=== PATIENT | male | born 1990 | race Caucasian/White ===

== ENCOUNTER 2017-08-18 22:50 | Emergency (ER) | END 2017-08-19 00:06 | disposition home or self-care (01) ==

== ENCOUNTER 2017-09-04 14:36 | Emergency (ER) | END 2017-09-04 17:05 | disposition home or self-care (01) ==

== ENCOUNTER 2017-09-12 22:41 | Emergency (ER) | END 2017-09-13 01:59 | disposition home or self-care (01) ==

== ENCOUNTER 2017-10-29 19:16 | Emergency (ER) | END 2017-10-29 20:11 | disposition left against medical advice (07) ==

== ENCOUNTER → 2017-10-29 | Emergency (ER) | END | disposition home or self-care (01) ==

== ENCOUNTER 2018-10-28 21:33 | Emergency (ER) | payer BC ==
[~2018-10-28] VITALS: Ht 160 cm; Wt 82.2 kg
[~2018-10-28 21:33] MED LIST: BEN25 PO; CETI10CA PO; DIPH25CA6 PO; ELIM TOP; EPIN0.3P4 INJ; FEXO180T61 PO; HYDR-842 PO; HYDR50TA15 PO; LORA10CA PO; PRED20TA PO
[2018-10-28 21:49] VITALS: Ht 160 cm; Wt 82.2 kg
--- NOTE | 2018-10-28 22:38 | ERD ---
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 The patient was eating shrimp and drinking a beer when this happened. He denies palpitations, no sweating, no shortness of breath, no radiation of the pain. The patient is a non-smoker, no history of hypertension, no history of family heart disease. Currently, the patient is asymptomatic, pain is 0/10 ROS All systems reviewed and are negative except as per history of present illness. Medications Home Meds Active Scripts Hydroxyzine Hcl* (Atarax*) 25 Mg Tab, 25 MG PO Q6H PRN for ITCHING, #30 TAB Prov:CORTEZ MCGRATH PA-C 10/29/17 Permethrin* (Elimite*) 5% Cr, 1 APPLIC TOP ONCE, #2 TUB Prov:CORTEZ MCGRATH PA-C 10/29/17 Loratadine* (Claritin*) 10 Mg Capsule, 10 MG PO DAILY, #30 CAP Prov:PASILABAN,JANISAR F 09/13/17 Prednisone* (Prednisone*) 20 Mg Tab, 20 MG PO DAILY for 4 Days, TAB Prov:PASILABAN,JANISAR F 09/13/17 Hydroxyzine Hcl* (Hydroxyzine Hcl*) 50 Mg Tablet, 50 MG PO Q6H PRN for ITCHING, #30 TAB Prov:PASILABAN,JANISAR F 09/13/17 Epinephrine (Epipen 2-Jesus) 0.3 Mg/0.3 Ml Pen.injctr, 1 EA INJ ONCE PRN for ALLERGIC REACTION, #1 EA Prov:PASILABAN,JANISAR F 09/13/17 Diphenhydramine Hcl* (Diphenhydramine Hcl*) 25 Mg Capsule, 25 MG PO Q6 PRN for ITCHING for 3 Days, CAP Prov:DENEENDIANN PALACIOS 09/04/17 Fexofenadine Hcl* (Carola*) 180 Mg Tablet, 180 MG PO DAILY, #30 TAB Prov:DENEENDIANN PALACIOS C 09/04/17 Prednisone* (Prednisone*) 20 Mg Tab, 40 MG PO DAILY for 4 Days, TAB Prov:FRANCESCA CARLTON PA-C 08/18/17 Diphenhydramine Hcl* (Benadryl*) 25 Mg Cap, 25 MG PO Q6, #30 CAP Prov:FRANCESCA CARLTON PA-C 08/18/17 Cetirizine Hcl* (Zyrtec*) 10 Mg Capsule, 10 MG PO DAILY, #10 TAB.CHEW Prov:FRANCESCA CARLTON PA-C 08/18/17 Allergies Allergies: Coded Allergies: No Known Allergy (Unverified , 10/29/17) PMhx/Soc History of Surgery: Yes (CLEFT PALLET REPAIR) Anesthesia Reaction: No Hx Neurological Disorder: No Hx Respiratory Disorders: No Hx Cardiac Disorders: No Hx Psychiatric Problems: No Hx Miscellaneous Medical Probl: No Hx Alcohol Use: Yes (social) Hx Substance Use: Yes (MARIJUANA) Hx Tobacco Use: No Smoking Status: Never smoker FmHx Family History: No diabetes, No coronary disease Physical Exam Vitals Vital Signs Date Temp Pulse Resp B/P (MAP) Pulse Ox O2 O2 Flow FiO2 Time Delivery Rate 10/28/18 98.9 71 16 135/73 100 21:49 (93) Physical Exam Const: No acute distress Head: Atraumatic Eyes: Normal Conjunctiva ENT: Normal External Ears, Nose and Mouth. Neck: Full range of motion. No meningismus. Resp: Clear to auscultation bilaterally Cardio: Regular rate and rhythm, no murmurs Abd: Soft, non tender, non distended. Normal bowel sounds Skin: No petechiae or rashes Back: No midline or flank tenderness Ext: No cyanosis, or edema Neur: Awake and alert Psych: Normal Mood and Affect Procedures/MDM Vital signs stable. Differential diagnosis include but not limited to: URI, PNA, chostochondritis, GERD, musculoskeletal injury, less likely PE, pericarditis, endocarditis. Pertinent Data: 12 Lead ECG: Sinus rhythm, no ST changes, T wave with nonspecific abnormality in leads III, aVF and V3, normal intervals Physical examination and clinical presentation consistent most likely with atypical chest pain, I recommended a set of troponin due to the nonspecific T wave abnormalities, however, the patient states that he feels much better and he wants to go home, therefore, he refuses the troponin. During the ED course the patient remained stable, no new complaints. Results and clinical impression discussed with patient who agrees with management. The patient is stable to be treated outpatient and will be discharged home. The patient was informed that the evaluation in the emergency department has been done to rule out an acute emergency, therefore, chronic conditions like malignancy or other non-urgent medical condition have not been evaluated; the refore, the patient was instructed to follow up with the primary care provider in the next 48h. If symptoms persist, worsen or new symptoms develop, then patient should return to the ED immediately. Instructions explained and given directly by me to the patient with acknowledgment and demonstrated understanding. Disclaimer: Inadvertent spelling and grammatical errors are likely due to EHR/dictation software use and do not reflect on the overall quality of patient care. Also, please note that the electronic time recorded on this note does not necessarily reflect the actual time of the patient encounter. Departure Diagnosis: Primary Impression: Chest wall pain Condition: Stable Additional Instructions: Thank you very much for allowing us to participate in your care. Your health and safety is our top priority at [facility]. Call your primary care doctor TOMORROW for an appointment during the next 2-4 days and bring all the information and medications prescribed. Have prescriptions filled and follow precisely the directions on the label. If the symptoms get worse and your provider is unavailable, return to the Emergency Department immediately. EAN SHAW MD Oct 28, 2018 22:38
[2018-10-28] MEDS ORDERED: IBUP-1561 PO (22:39)
[2018-10-28 23:45] VITALS: BP 135/73; PULSE 80; RESP 16
== END 2018-10-28 23:46 | disposition home or self-care (01) ==
LOC: FTE 21:33
DX: R07.89 Other chest pain (principal)

== ENCOUNTER 2018-12-09 03:12 | Emergency (ER) | payer BC ==
[~2018-12-09] VITALS: Wt 82.3 kg
[~2018-12-09 03:12] MED LIST changes: +IBUP-1561 PO
[2018-12-09 03:17] VITALS: BP 125/78; PULSE 54; RESP 18
[2018-12-09] MEDS ORDERED: DIPHENHYDRAMINE 25 MG CAP PO STA (03:55)
[2018-12-09] MEDS ORDERED: predniSONE 20 MG TAB PO STA (03:55)
[2018-12-09] MEDS ORDERED: EPIN0.3P4 INJ (04:24)
[2018-12-09] MEDS ORDERED: BEN25 PO (04:24)
[2018-12-09] MEDS ORDERED: PRED20TA PO (04:24)
--- NOTE | 2018-12-09 04:31 | ERD ---
ER Documentation Chief Complaint Chief Complaint ALLERGIC REACTION HPI This is a 28-year-old male with no history of allergies presents to the ED with intermittent hives x4 days. Patient states he started using a new shampoo and believes this may be the cause. He states rash is very itchy. He tried taking Benadryl with temporary relief of his pain. Denies any shortness of breath, tongue swelling, difficulty swallowing, breathing or any other complaints. No other new exposures reported. ROS All systems reviewed and are negative except as per history of present illness. Medications Home Meds Active Scripts Epinephrine (Epipen 2-Jesus) 0.3 Mg/0.3 Ml Pen.injctr, 1 EA INJ ONCE PRN for ALLERGIC REACTION, #1 EA Prov:KIMBERLEY VERDUZCO PA-C 12/09/18 Prednisone* (Prednisone*) 20 Mg Tab, 60 MG PO DAILY for 4 Days, TAB Prov:RUKHSANAIGRKIMBERLEY ROSS PA-C 12/09/18 Diphenhydramine Hcl* (Benadryl*) 25 Mg Cap, 25 MG PO Q6 PRN for ITCHING/RASH, #30 TAB Prov:KIMBERLEY VERDUZCO PA-C 12/09/18 Ibuprofen* (Motrin*) 400 Mg Tab, 400 MG PO Q6H PRN for PAIN AND OR ELEVATED TEMP, #20 TAB Prov:EAN SHAW MD 10/28/18 Hydroxyzine Hcl* (Atarax*) 25 Mg Tab, 25 MG PO Q6H PRN for ITCHING, #30 TAB Prov:CORTEZ MCGRATH PA-C 10/29/17 Permethrin* (Elimite*) 5% Cr, 1 APPLIC TOP ONCE, #2 TUB Prov:CORTEZ MCGRATH PA-C 10/29/17 Loratadine* (Claritin*) 10 Mg Capsule, 10 MG PO DAILY, #30 CAP Prov:PASILARENETTA VÁZQUEZ 09/13/17 Prednisone* (Prednisone*) 20 Mg Tab, 20 MG PO DAILY for 4 Days, TAB Prov:PASRENETTA GALVAN 09/13/17 Hydroxyzine Hcl* (Hydroxyzine Hcl*) 50 Mg Tablet, 50 MG PO Q6H PRN for ITCHING, #30 TAB Prov:PASILARENETTA VÁZQUEZ 09/13/17 Epinephrine (Epipen 2-Jesus) 0.3 Mg/0.3 Ml Pen.injctr, 1 EA INJ ONCE PRN for ALLERGIC REACTION, #1 EA Prov:RENETTA ROONEY F 09/13/17 Diphenhydramine Hcl* (Diphenhydramine Hcl*) 25 Mg Capsule, 25 MG PO Q6 PRN for ITCHING for 3 Days, CAP Prov:DIANN BROTHERS C 09/04/17 Fexofenadine Hcl* (Carola*) 180 Mg Tablet, 180 MG PO DAILY, #30 TAB Prov:DIANN BROTHERS C 09/04/17 Prednisone* (Prednisone*) 20 Mg Tab, 40 MG PO DAILY for 4 Days, TAB Prov:BIANKAFRANCESCA REID 08/18/17 Diphenhydramine Hcl* (Benadryl*) 25 Mg Cap, 25 MG PO Q6, #30 CAP Prov:BIANKAFRANCESCA REID 08/18/17 Cetirizine Hcl* (Zyrtec*) 10 Mg Capsule, 10 MG PO DAILY, #10 TAB.CHEW Prov:LIZANDRO CARLTONCYNTHIA REID 08/18/17 Allergies Allergies: Coded Allergies: No Known Allergy (Unverified , 10/29/17) PMhx/Soc History of Surgery: Yes (CLEFT PALLET REPAIR) Anesthesia Reaction: No Hx Neurological Disorder: No Hx Respiratory Disorders: No Hx Cardiac Disorders: No Hx Psychiatric Problems: No Hx Miscellaneous Medical Probl: No Hx Alcohol Use: Yes (social) Hx Substance Use: Yes (MARIJUANA) Hx Tobacco Use: No Physical Exam Vitals Vital Signs Date Temp Pulse Resp B/P (MAP) Pulse Ox O2 O2 Flow FiO2 Time Delivery Rate 12/09/18 97.3 54 18 125/78 100 03:17 (94) Physical Exam Const: No acute distress Head: Atraumatic Eyes: Normal Conjunctiva. No periorbital edema. ENT: Normal External Ears, Nose and Mouth. No tongue or uvula swelling. Neck: Full range of motion. No meningismus. No trismus. Resp: Clear to auscultation bilaterally Cardio: Regular rate and rhythm, no murmurs Abd: Soft, non tender, non distended. Normal bowel sounds Skin: + Diffuse urticarial rash across the neck crease, trunk, and bilateral upper extremities. Back: No midline or flank tenderness Ext: No cyanosis, or edema Neur: Awake and alert Psych: Normal Mood and Affect Results 24 hrs Current Medications Medications Dose Sig/[place] Start Time Status Last (Trade) Ordered Route PRN Stop Time Admin Dose Reason Admin 25 mg ONCE STAT 12/09/18 DC 12/09/18 Diphenhydrami PO 03:55 04:04 ne HCl 12/09/18 03:56 (Benadryl) Prednisone 60 mg ONCE STAT 12/09/18 DC 12/09/18 (Prednisone) PO 03:55 04:04 12/09/18 03:56 Procedures/MDM ED COURSE: The patient was given p.o. prednisone, Benadryl The medication was well tolerated and the patient had market improvement in symptoms. The patient remained stable throughout ED course. MEDICAL DECISION MAKIN-year-old male presents with what appears to be an allergic reaction. The patient does not have signs of airway involvement, has normal vital signs, and no signs or symptoms to suggest impending airway involvement. For these reasons, epinephrine was not indicated. The patient was appropriately treated with oral glucocorticoids and antihistamines. He was observed in the ER with improvement of his urticarial rash and continued to be well appearing. Discharge planning included prescriptions for EpiPen, benadryl, and prednisone for 4 days. His parents were educated and advised to follow up with a primary care doctor and infantry weapons officer. PRESCRIPTIONS: Benadryl, prednisone, EpiPen SPECIALIST FOLLOW UP RECOMMENDED: None Patient has been advised to follow up with primary care in 1-2 days. Departure Diagnosis: Primary Impression: Allergic reaction Encounter type: initial encounter Qualified Codes: T78.40XA - Allergy, unspecified, initial encounter Condition: Stable Patient Instructions: First Aid: Allergic Reactions Referrals: COMMUNITY CLINICS YOU HAVE RECEIVED A MEDICAL SCREENING EXAM AND THE RESULTS INDICATE THAT YOU DO NOT HAVE A CONDITION THAT REQUIRES URGENT TREATMENT IN THE EMERGENCY DEPARTMENT. FURTHER EVALUATION AND TREATMENT OF YOUR CONDITION CAN WAIT UNTIL YOU ARE SEEN IN YOUR DOCTORS OFFICE WITHIN THE NEXT 1-2 DAYS. IT IS YOUR RESPONSIBILITY TO MAKE AN APPOINTMENT FOR FOLOW-UP CARE. IF YOU HAVE A PRIMARY DOCTOR --you should call your primary doctor and schedule an appointment IF YOU DO NOT HAVE A PRIMARY DOCTOR YOU CAN CALL OUR PHYSICIAN REFERRAL HOTLINE AT IF YOU CAN NOT AFFORD TO SEE A PHYSICIAN YOU CAN CHOSE FROM THE FOLLOWING [facility] CLINICS [facility] [address] [facility] [address] [facility] [address] [facility] [address] [facility] [address] [facility] [address] [facility] YOU HAVE RECEIVED A MEDICAL SCREENING EXAM AND THE RESULTS INDICATE THAT YOU DO NOT HAVE A CONDITION THAT REQUIRES URGENT TREATMENT IN THE EMERGENCY DEPARTMENT. FURTHER EVALUATION AND TREATMENT OF YOUR CONDITION CAN WAIT UNTIL YOU ARE SEEN IN YOUR DOCTORS OFFICE WITHIN THE NEXT 1-2 DAYS. IT IS YOUR RESPONSIBILITY TO MAKE AN APPOINTMENT FOR FOLOW-UP CARE. IF YOU HAVE A PRIMARY DOCTOR --you should call your primary doctor and schedule and appointment IF YOU DO NOT HAVE A PRIMARY DOCTOR YOU CAN CALL OUR PHYSICIAN REFERRAL HOTLINE AT . IF YOU CAN NOT AFFORD TO SEE A PHYSICIAN YOU CAN CHOSE FROM THE FOLLOWING [facility] INSTITUTIONS: [facility] [address] [place] [address] [facility] [address] [place] [address] [facility] [address] [place] [address] [facility] Additional Instructions: Follow-up with a primary care provider for referral to an category specialist. Take the Benadryl as needed for any itching or rash. I recommend taking the steroids for the next 4 days as well. Return here if any new or worsening symptoms. KIMBERLEY VERDUZCO PA-C December 09, 2018 04:31
== END 2018-12-09 04:36 | disposition home or self-care (01) ==
LOC: FTE 03:12
DX: L50.0 Allergic urticaria (principal)
CPT/HCPCS: 99283; J7512